=== PATIENT | female | born 1945 | race African-American/Black ===

== ENCOUNTER → 2016-12-26 | Outpatient (CLI) | payer MEDICARE, OTHER | LOC: WI 13:03 | PROVIDERS: ATTEND Internal Medicine | DX: Z12.31 Encounter for screening mammogram for malignant neoplasm of breast (principal) | CPT/HCPCS: 77063; G0202; 77067 ==

== ENCOUNTER → 2017-12-29 | Outpatient (CLI) | payer MEDICARE, OTHER ==
--- NOTE | 2017-12-29 09:30 | WOMENS IMAGING REPORT ---
EXAM DESCRIPTION: 3D SCREENING MAMMO BILAT COMPLETED DATE/TIME: 12/29/2017 8:53 am REASON FOR STUDY: ROUTINE SCREENING;Z12.31 Z12.31 ENCNTR SCREEN MAMMOGRAM FOR MALIGNANT NEOPLASM OF TONYA COMPARISON: [id number] TECHNIQUE: Standard craniocaudal and mediolateral oblique views of each breast recorded using digita l acquisition and breast tomosynthesis. LIMITATIONS: None. FINDINGS: No masses, calcifications or architectural distortion. No areas of suspicion. Read with the assistance of CAD. .[facility] - R2 Cenova Version 1.3 .[facility] - R2 Cenova Version 1.3 .[facility] Imaging - R2 Cenova Version 2.4 .[facility] [place] - R2 Cenova Version 2.4 .[facility] - R2 Manager Order Version 9.2 IMPRESSION: NORMAL MAMMOGRAM. BIRADS 1. BREAST DENSITY: b. There are scattered areas of fibroglandular density. BIRAD: 1 NEGATIVE RECOMMENDATION: ROUTINE SCREENING COMMENT: The patient has been notified of the results by letter per SA requirements. Additional no tification policies are in place for contacting patient with suspicious or incomplete findings. Quality ID #225: The [employer] recommends an annual screening mammogram for women aged 40 years or over. This facility utilizes a reminder system to ensure that all patients receive reminder letters, and/or direct phone calls for appointments. This includes reminders for routine scr eening mammograms, diagnostic mammograms, or other Breast Imaging Interventions when appropriate. Th is patient will be placed in the appropriate reminder system. The [employer] (ACR) has developed recommendations for screening MRI of the breast s in certain patient populations, to be used in conjunction with mammography. Breast MRI surveillanc e may be appropriate for women with more than 20% lifetime risk of developing breast cancer as deter mined by genetic testing, significant family history of the disease, or history of mantle radiation f or Hodgkins Disease. ACR Practice Guidelines 2008. DBT Technology DBT is a type of tomographic mammography. With conventional mammography, overlapping breast tissue ma y make lesions difficult to detect, even with good compression. DBT uses an x-ray tube that rotates a round the breast, taking images at different angles. These images are then combined to create thin sl ices of the breast that the radiologist can view as a 3D reconstruction. The D square nv unit can perform full-field digital mammograms (2D imaging); or DBT (3D imaging); or both, in a combination mode that quickly performs both the mammogram and the tomosynthesis scan while the breast is still compressed. PQRS 6045F: Fluoroscopic imaging is not utilized for breast tomosynthesis. TECHNICAL DOCUMENTATION: FINDING NUMBER: (1) ASSESSMENT: (1) JOB ID: [id number] [employer]- All Rights Reserved Reading location - IP/workstation name: [facility]-[email or web address]
== END ==
LOC: WI 08:52
PROVIDERS: ATTEND Internal Medicine
DX: Z12.31 Encounter for screening mammogram for malignant neoplasm of breast (principal)
CPT/HCPCS: 77063; 77067

== ENCOUNTER → 2017-12-30 | Outpatient (CLI) | payer MEDICARE, OTHER ==
[2017-12-30 13:29] LABS: UR PRO/CREAT RATIO RESULT 0.1 mg/mg (0.0-0.2); URINE CREATININE 139.3 mg/dL (15-278); URINE PROTEIN 19.2 mg/dL (<12)
[2017-12-31 15:38] LABS: ALBUMIN 3 3.1 g/dL (2.9-4.4); ALPHA-1-GLOBULIN 0.2 g/dL (0.0-0.4); BETA GLOBULIN 1.2 g/dL (0.7-1.3); GAMMA GLOBULINS 1.1 g/dL (0.4-1.8); IMMUNOGLOBULIN A 362 mg/dL (64-422); IMMUNOGLOBULIN G 1024 mg/dL (700-1600); IMMUNOGLOBULIN M 127 mg/dL (26-217); MONOCLONAL-SPIKE Not Observed g/dL (Not Observed); PROTEIN TOTAL SERUM 6.5 g/dL (6.0-8.5)
[2018-01-01 15:38] LABS: ALPHA-1-GLOBULIN URINE 0.9 % (.); ALPHA-2-GLOBULIN URINE 7.3 % (.); GAMMA GLOBULIN URINE 68.4 % (.); M-SPIKE % UR 58.5 % (Not Observed); PROTEIN TOTAL URINE 30.2 mg/dL (Not Estab.)
== END ==
LOC: OD 10:20
PROVIDERS: ATTEND Internal Medicine
DX: R80.9 Proteinuria, unspecified (principal); N18.3 Chronic kidney disease, stage 3 (moderate)
CPT/HCPCS: 36415; 82570; 84156; 84166; 86320

== ENCOUNTER → 2018-01-15 | Outpatient (CLI) | payer MEDICARE, OTHER ==
--- NOTE | 2018-01-15 17:03 | RADIOLOGY REPORT (SQ) ---
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 TECHNIQUE: Images of the axial and proximal appendicular skeleton are obtained, along with lateral s kull and frontal chest films. LIMITATIONS: None. FINDINGS: AP CHEST: No bony findings. Lungs are clear. Mild cardiomegaly LATERAL SKULL: No worrisome bone lesions. AP BOTH HUMERI: No worrisome bone lesions. TWO-VIEW LUMBAR SPINE: No worrisome bone lesions. TWO-VIEW THORACIC SPINE: No worrisome bone lesions. TWO VIEW CERVICAL SPINE: No worrisome bone lesions. High-grade disc space narrowing with anterior o steophyte formation at C5-6 and C6-7 AP PELVIS: No worrisome bone lesions. AP BOTH FEMURS: Old right femur healed diaphysis fracture. Left femur unremarkable OTHER: No other significant finding. IMPRESSION: NO WORRISOME BONE LESIONS. TECHNICAL DOCUMENTATION: JOB ID: [id number] [employer]- All Rights Reserved Reading location - IP/workstation name: [facility]-[email or web address]
== END ==
LOC: RAD 15:02
PROVIDERS: ATTEND Internal Medicine Medical Oncology
DX: D47.2 Monoclonal gammopathy (principal)
CPT/HCPCS: 77075

== ENCOUNTER 2018-01-20 09:07 | Day surgery (SDC) | payer MEDICARE, OTHER ==
[2018-01-20 10:03] LABS: HEMOGLOBIN 12.1 g/dL (12.0-15.5); MEAN CORPUSCULAR HEMOGLOBIN 23.6 pg (27.0-33.4); MEAN CORPUSCULAR VOLUME 76 fl (80-97); PLATELET COUNT 192 10^3/uL (150-450); RED BLOOD COUNT 5.12 10^6/uL (3.72-5.28); RED CELL DISTRIBUTION WIDTH 17.2 % (11.5-14.0); WHITE BLOOD COUNT 8.2 10^3/uL (4.0-10.5)
[2018-01-20 10:10] LABS: INTERNATIONAL RATION (INR) 0.99; PARTIAL THROMBOPLASTIN TIME 25.7 SEC (23.5-35.8); PROTHROMBIN TIME 13.5 SEC (11.4-15.4)
[2018-01-20] MEDS ORDERED: FENTANYL CITRATE INJ/PF 100 MCG/2 ML AMPUL ONE (10:57)
[2018-01-20] MEDS ORDERED: MIDAZOLAM 2 MG/2 ML INJ ONE (10:57)
[2018-01-20] MEDS ORDERED: LIDOCAINE 1% INJ-PF (10 MG/ML) 30 ML SDV ONE (10:57)
--- NOTE | 2018-01-20 12:59 | RADIOLOGY REPORT (SQ) ---
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 TECHNIQUE: CT guided biopsy of the right iliac crest bone marrow performed with conscious sedation. CT Fluoroscopy Time: 1.[address] scanners at this facility use dose modulation, iterative reconstruction, and/or weight based d osing when appropriate to reduce radiation dose to as low as reasonably achievable (ALARA). [facility]: Dose Right [facility]: CareDose [facility]: Dose Right [facility]: Teradose 4D [facility]: [employer] RADIATION DOSE: mGy. FINDINGS: The procedure was discussed with the patient and the patient agreed to the procedure. Prio r to the procedure, a time out was performed to verify the patient's identity and planned procedure. IV sedation was administered and physician direction by the registered nurse using 1 milligrams of Ve rsed and 50 micrograms of fentanyl. Physiologic monitoring was provided before, during, and after sed ation. The total sedation time was 30 minutes. Documentation face to face time, the performing proceduralist, spent monitoring the patient: [address] scanning was performed to localize the percutaneous site for the biopsy approach. After sterile skin prep and local lidocaine for skin and deep tissue anesthesia, a coaxial biopsy nee dle was used to obtain a bone marrow aspirate, and a bone marrow core of tissue. The biopsy tissue wa s received by Dr. Al's nurse to be sent out for evaluation. There were no immediate complication s. Pathology is pending at the time of dictation. IMPRESSION: CT GUIDED ASPIRATE AND CORE BIOPSY OF THE RIGHT POSTERIOR ILIAC CREST BONE MARROW PERFOR MED WITHOUT IMMEDIATE COMPLICATION. PATHOLOGY PENDING. IV CONSCIOUS SEDATION WITHOUT COMPLICATION. COMMENT: Quality ID 145: Final reports for procedures using fluoroscopy that document radiation exp osure indices, or exposure time and number of fluorographic images (if radiation exposure indices are not available) Patient medication list reviewed: Yes- Quality ID# [id number]:Eligible professional attests to documenting i n the medical record they obtained, updated, or reviewed the patient's current medications.. TECHNICAL DOCUMENTATION: JOB ID: [id number] Quality ID# 436: Final reports with documentation of one or more dose reduction techniques (e.g., Aut omated exposure control, adjustment of the mA and/or kV according to patient size, use of iterative r econstruction technique) 2010 [employer]- All Rights Reserved Reading location - IP/workstation name: [facility]-RR2
--- NOTE | 2018-01-20 12:59 | RADIOLOGY REPORT (SQ) ---
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 TECHNIQUE: CT guided biopsy of the right iliac crest bone marrow performed with conscious sedation. CT Fluoroscopy Time: 1.[address] scanners at this facility use dose modulation, iterative reconstruction, and/or weight based d osing when appropriate to reduce radiation dose to as low as reasonably achievable (ALARA). [facility]: Dose Right [facility]: CareDose [facility]: Dose Right [facility]: Teradose 4D [facility]: [employer] RADIATION DOSE: mGy. FINDINGS: The procedure was discussed with the patient and the patient agreed to the procedure. Prio r to the procedure, a time out was performed to verify the patient's identity and planned procedure. IV sedation was administered and physician direction by the registered nurse using 1 milligrams of Ve rsed and 50 micrograms of fentanyl. Physiologic monitoring was provided before, during, and after sed ation. The total sedation time was 30 minutes. Documentation face to face time, the performing proceduralist, spent monitoring the patient: [address] scanning was performed to localize the percutaneous site for the biopsy approach. After sterile skin prep and local lidocaine for skin and deep tissue anesthesia, a coaxial biopsy nee dle was used to obtain a bone marrow aspirate, and a bone marrow core of tissue. The biopsy tissue wa s received by Dr. Al's nurse to be sent out for evaluation. There were no immediate complication s. Pathology is pending at the time of dictation. IMPRESSION: CT GUIDED ASPIRATE AND CORE BIOPSY OF THE RIGHT POSTERIOR ILIAC CREST BONE MARROW PERFOR MED WITHOUT IMMEDIATE COMPLICATION. PATHOLOGY PENDING. IV CONSCIOUS SEDATION WITHOUT COMPLICATION. COMMENT: Quality ID 145: Final reports for procedures using fluoroscopy that document radiation exp osure indices, or exposure time and number of fluorographic images (if radiation exposure indices are not available) Patient medication list reviewed: Yes- Quality ID# 130:Eligible professional attests to documenting i n the medical record they obtained, updated, or reviewed the patient's current medications.. TECHNICAL DOCUMENTATION: JOB ID: [id number] Quality ID# 436: Final reports with documentation of one or more dose reduction techniques (e.g., Aut omated exposure control, adjustment of the mA and/or kV according to patient size, use of iterative r econstruction technique) 2010 [employer]- All Rights Reserved Reading location - IP/workstation name: [facility]-RR2
[2018-01-20 13:52] VITALS: BP 115/65
== END 2018-01-20 13:00 | disposition home or self-care (01) ==
LOC: RAD 09:07
PROVIDERS: ATTEND Internal Medicine Medical Oncology
PROC: 07DR3ZX Extraction of Iliac Bone Marrow, Percutaneous Approach, Diagnostic (ICD-10-PCS; principal; 2018-01-20)
DX: D47.2 Monoclonal gammopathy (principal); F17.210 Nicotine dependence, cigarettes, uncomplicated; Z79.51 Long term (current) use of inhaled steroids; Z79.82 Long term (current) use of aspirin
CPT/HCPCS: 36415; 82962; 85027; 85610; 85730; 38221; 77012; J2250; J3010; J3490

== ENCOUNTER → 2018-12-21 | Outpatient (CLI) | payer MEDICARE, OTHER ==
--- NOTE | 2018-12-21 12:58 | WOMENS IMAGING REPORT ---
EXAM DESCRIPTION: RETROPERITONEAL U/S COMPLETED DATE/TIME: 12/21/2018 11:40 am REASON FOR STUDY: RENAL;N18.4 N18.4 CHRONIC KIDNEY DISEASE, STAGE 4 (SEVERE) COMPARISON: None. TECHNIQUE: Dynamic and static grayscale images acquired of the kidneys and bladder and recorded on P ACS. Additional selected color Doppler and spectral images recorded. LIMITATIONS: None. FINDINGS: RIGHT KIDNEY: Normal size, 10.4 cm. Normal echogenicity. No solid masses. There are multiple cysts. The largest measures 25 mm. No hydronephrosis. No calcifications. LEFT KIDNEY: Atrophic. 3.7 cm. No solid or suspicious masses. No hydronephrosis. No calcificat ions. BLADDER: Bladder is not filled and therefore not evaluated. OTHER FINDINGS: No other significant finding. IMPRESSION: Normal right kidney. Atrophic left kidney. Bladder was not evaluated. TECHNICAL DOCUMENTATION: JOB ID: [id number] [employer]- All Rights Reserved Reading location - IP/workstation name: [email or web address]
== END ==
LOC: WI 11:16
PROVIDERS: ATTEND Internal Medicine Nephrology
DX: E11.22 Type 2 diabetes mellitus with diabetic chronic kidney disease (principal); I12.9 Hypertensive chronic kidney disease with stage 1 through stage 4 chronic kidney disease, or unspecified chronic kidney disease; N18.4 Chronic kidney disease, stage 4 (severe); M10.9 Gout, unspecified
CPT/HCPCS: 76770

== ENCOUNTER → 2018-12-31 | Outpatient (CLI) | payer MEDICARE, OTHER ==
[2018-12-31 09:32] LABS: ABSOLUTE EOSINOPHILS # (AUTO) 0.1 10^3/uL (0.0-0.6); ABSOLUTE LYMPHOCYTES (AUTO) 1.9 10^3/uL (0.5-4.7); ABSOLUTE MONOCYTES (AUTO) 0.6 10^3/uL (0.1-1.4); ABSOLUTE NEUT (AUTO) 4.3 10^3/uL (1.7-8.2); BASOPHILS % (AUTO) 0.6 % (0-2); EOSINOPHILS % (AUTO) 1.7 % (0-6); HEMATOCRIT 37.8 % (36.0-47.0); LYMPHOCYTES % (AUTO) 27.2 % (13-45); MEAN CORPUSCULAR HEMOGLOBIN 23.6 pg (27.0-33.4); MEAN CORPUSCULAR HGB CONC 31.8 g/dL (32.0-36.0); MEAN CORPUSCULAR VOLUME 74 fl (80-97); MONOCYTES % (AUTO) 8.6 % (3-13); PLATELET COUNT 216 10^3/uL (150-450); RED CELL DISTRIBUTION WIDTH 16.2 % (11.5-14.0); SEGMENTED NEUTROPHILS % (AUTO) 61.9 % (42-78); TOTAL CELLS COUNTED % (AUTO) 100 %
[2018-12-31 09:41] LABS: APPEARANCE,URINE SLIGHTLY-CLOUDY; BILIRUBIN,URINE NEGATIVE (NEGATIVE); COLOR,URINE YELLOW; GLUCOSE, URINE NEGATIVE (NEGATIVE); KETONES,URINE NEGATIVE (NEGATIVE); LEUKOCYTE ESTERASE,URINE NEGATIVE (NEGATIVE); NITRITE,URINE NEGATIVE (NEGATIVE); PROTEIN,URINE NEGATIVE (NEGATIVE); URINE SPECIFIC GRAVITY 1.015; UROBILINOGEN,URINE NEGATIVE mg/dL (<2.0)
[2018-12-31 10:05] LABS: ALANINE AMINOTRANSFERASE 18 U/L (9-52); ALBUMIN 3.7 g/dL (3.5-5.0); ALKALINE PHOSPHATASE 93 U/L (38-126); ANION GAP 8 (5-19); ASPARTATE AMINO TRANSFERASE 17 U/L (14-36); BILIRUBIN,DIRECT 0.3 mg/dL (0.0-0.4); BILIRUBIN,TOTAL 0.5 mg/dL (0.2-1.3); BLOOD UREA NITROGEN 44 mg/dL (7-20); CALCIUM 10.2 mg/dL (8.4-10.2); CARBON DIOXIDE 31 mmol/L (22-30); CHLORIDE 104 mmol/L (98-107); GLUCOSE 113 mg/dL (75-110); POTASSIUM 3.7 mmol/L (3.6-5.0); SODIUM 143.2 mmol/L (137-145); TOTAL PROTEIN 7.1 g/dL (6.3-8.2); URIC ACID 5.6 mg/dL (2.5-7.5)
== END ==
LOC: OD 08:18
PROVIDERS: ATTEND Internal Medicine Nephrology
DX: E11.22 Type 2 diabetes mellitus with diabetic chronic kidney disease (principal); I12.9 Hypertensive chronic kidney disease with stage 1 through stage 4 chronic kidney disease, or unspecified chronic kidney disease; N18.4 Chronic kidney disease, stage 4 (severe)
CPT/HCPCS: 36415; 80053; 81001; 84550; 85025

== ENCOUNTER → 2019-03-04 | Outpatient (CLI) | payer MEDICARE, OTHER ==
[2019-03-04 09:03] LABS: HEMATOCRIT 35.9 % (36.0-47.0); HEMOGLOBIN 11.4 g/dL (12.0-15.5); MEAN CORPUSCULAR HEMOGLOBIN 22.9 pg (27.0-33.4); MEAN CORPUSCULAR HGB CONC 31.8 g/dL (32.0-36.0); MEAN CORPUSCULAR VOLUME 72 fl (80-97); PLATELET COUNT 176 10^3/uL (150-450); RED BLOOD COUNT 4.99 10^6/uL (3.72-5.28); RED CELL DISTRIBUTION WIDTH 15.8 % (11.5-14.0); WHITE BLOOD COUNT 7.3 10^3/uL (4.0-10.5)
[2019-03-04 09:33] LABS: ANION GAP 10 (5-19); BLOOD UREA NITROGEN 52 mg/dL (7-20); CALCIUM 10.2 mg/dL (8.4-10.2); CARBON DIOXIDE 29 mmol/L (22-30); CHLORIDE 106 mmol/L (98-107); GLUCOSE 126 mg/dL (75-110); POTASSIUM 3.8 mmol/L (3.6-5.0); SODIUM 144.5 mmol/L (137-145)
== END ==
LOC: OD 08:16
PROVIDERS: ATTEND Internal Medicine Nephrology
DX: I12.9 Hypertensive chronic kidney disease with stage 1 through stage 4 chronic kidney disease, or unspecified chronic kidney disease (principal); N18.4 Chronic kidney disease, stage 4 (severe); E11.22 Type 2 diabetes mellitus with diabetic chronic kidney disease; M10.00 Idiopathic gout, unspecified site
CPT/HCPCS: 36415; 80048; 83735; 85027

== ENCOUNTER → 2019-04-30 | Outpatient (CLI) | payer MEDICARE, OTHER ==
--- NOTE | 2019-04-30 11:44 | WOMENS IMAGING REPORT ---
EXAM DESCRIPTION: 3D SCREENING MAMMO BILAT COMPLETED DATE/TIME: 04/30/2019 10:02 am REASON FOR STUDY: Z12.31 ROUTINE 3D BILATERAL SCREENING Z12.31 ENCNTR SCREEN MAMMOGRAM FOR MALIGNAN T NEOPLASM OF TONYA COMPARISON: 12/29/2017 and 12/26/2016. EXAM PARAMETERS: Views: Standard craniocaudal and mediolateral oblique views of each breast recorded using digital acquisition and breast tomosynthesis. Read with the assistance of CAD. .[facility] - MCE-5 Development Manager Applied Version 9.2 LIMITATIONS: None. FINDINGS: No suspicious masses, suspicious calcifications or architectural distortion. No areas of c oncern. IMPRESSION: NEGATIVE MAMMOGRAM. BIRADS 1. BREAST DENSITY: b. There are scattered areas of fibroglandular density. BIRAD: ASSESSMENT: 1 NEGATIVE RECOMMENDATION: ROUTINE SCREENING COMMENT: The patient has been notified of the results by letter per MQSA requirements. Additional no tification policies are in place for contacting patient with suspicious or incomplete findings. Quality ID #225: The [employer] recommends an annual screening mammogram for women aged 40 years or over. This facility utilizes a reminder system to ensure that all patients receive reminder letters, and/or direct phone calls for appointments. This includes reminders for routine scr eening mammograms, diagnostic mammograms, or other Breast Imaging Interventions when appropriate. Th is patient will be placed in the appropriate reminder system. TECHNICAL DOCUMENTATION: FINDING NUMBER: (1) ASSESSMENT: (1) JOB ID: [id number] [employer]- All Rights Reserved Reading location - IP/workstation name: [email or web address]
== END ==
LOC: WI 09:44
PROVIDERS: ATTEND Internal Medicine
DX: Z12.31 Encounter for screening mammogram for malignant neoplasm of breast (principal)
CPT/HCPCS: 77063; 77067

== ENCOUNTER → 2019-06-25 | Outpatient (CLI) | payer MEDICARE, OTHER ==
--- NOTE | 2019-06-25 17:37 | RADIOLOGY REPORT (SQ) ---
EXAM DESCRIPTION: BONE SURVEY COMPLETE COMPLETED DATE/TIME: 06/25/2019 4:14 pm REASON FOR STUDY: D63.1 ANEMIA IN CHRONIC KIDNEY DISEASE D63.1 ANEMIA IN CHRONIC KIDNEY DISEASE COMPARISON: 01/15/2018 TECHNIQUE: Images of the axial and proximal appendicular skeleton are obtained, along with lateral s kull and frontal chest films. LIMITATIONS: None. FINDINGS: AP CHEST: No bony findings. Lungs are clear. SKULL: No worrisome bone lesions. AP BOTH HUMERI: No worrisome bone lesions. TWO-VIEW LUMBAR SPINE: No worrisome bone lesions. There is anterolisthesis of L4 on L5 and mild ante rolisthesis of L3 on L4. TWO-VIEW THORACIC SPINE: No worrisome bone lesions. AP PELVIS: No worrisome bone lesions. AP BOTH FEMURS: No osseous lesions. There is deformity of the proximal femur from a prior injury. OTHER: No worrisome bone lesions in the right and left tib-fib. IMPRESSION: No worrisome bone lesions. Changes in the lumbar spine as described. TECHNICAL DOCUMENTATION: JOB ID: [id number] [employer]- All Rights Reserved Reading location - IP/workstation name: [email or web address]
== END ==
LOC: RAD 15:20
PROVIDERS: ATTEND Internal Medicine
DX: M53.86 Other specified dorsopathies, lumbar region (principal); N18.9 Chronic kidney disease, unspecified; D63.1 Anemia in chronic kidney disease
CPT/HCPCS: 77075

== ENCOUNTER 2019-06-29 09:35 | Day surgery (SDC) | payer MEDICARE, OTHER ==
[2019-06-29 10:14] LABS: HEMATOCRIT 32.3 % (36.0-47.0); HEMOGLOBIN 10.2 g/dL (12.0-15.5); MEAN CORPUSCULAR HEMOGLOBIN 22.8 pg (27.0-33.4); MEAN CORPUSCULAR HGB CONC 31.4 g/dL (32.0-36.0); MEAN CORPUSCULAR VOLUME 73 fl (80-97); PLATELET COUNT 178 10^3/uL (150-450); RED BLOOD COUNT 4.45 10^6/uL (3.72-5.28); RED CELL DISTRIBUTION WIDTH 15.8 % (11.5-14.0); WHITE BLOOD COUNT 6.8 10^3/uL (4.0-10.5)
[2019-06-29 10:33] LABS: BLOOD UREA NITROGEN 36 mg/dL (7-20)
[2019-06-29 10:46] LABS: INTERNATIONAL RATION (INR) 1.08
[2019-06-29 10:47] LABS: PARTIAL THROMBOPLASTIN TIME 24.5 SEC (23.5-35.8)
[2019-06-29] MEDS ORDERED: MIDAZOLAM 2 MG/2 ML INJ ONE (12:09)
[2019-06-29] MEDS ORDERED: FENTANYL CITRATE INJ/PF 100 MCG/2 ML AMPUL ONE (12:09)
--- NOTE | 2019-06-29 13:35 | RADIOLOGY REPORT (SQ) ---
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 TECHNIQUE: CT guided biopsy of the left iliac crest bone marrow performed with conscious sedation. CT Fluoroscopy Time: 0.[address] scanners at this facility use dose modulation, iterative reconstruction, and/or weight based d osing when appropriate to reduce radiation dose to as low as reasonably achievable (ALARA). [facility]: Dose Right [facility]: CareDose [facility]: Dose Right [facility]: Teradose 4D [facility]: Smart [employer] RADIATION DOSE: CT Rad equipment meets quality standard of care and radiation dose reduction techniq ues were employed. CTDIvol: 4.0 - 26.8 mGy. DLP: 924 mGy-cm.mGy. FINDINGS: The procedure, risks, benefits, and alternatives were discussed with the patient in the pr eprocedural area, and all questions were answered. Informed consent was obtained verbally and in writ ing. The patient was then brought to the CT suite, positioned prone on the CT gurney, and a time-out was p erformed. After that, axial images of the pelvis were obtained for targeting of the iliac tuberosity. Based on review of the axial images an appropriate access site was selected on the left buttock. The area around selected access site was then prepped and draped 2% chlorhexidine utilizing standard sterile technique. After that, the access site was infiltrated 1% lidocaine and an incision was made in the skin with a #11 blade. An 11 gauge Osteo-Site Lugo coaxial needle was then advanced into the iliac tuberosity. After that, the inner stylet of the coaxial needle was replaced for a 13 gauge bio psy needle and 1 core sample was obtained. 15 mL of marrow aspirate were then collected through the cannula of the coaxial needle. Once the aspirate was collected, the cannula of the Osteo-Site Lugo coaxial needle was removed and axial images of the biopsied area were obtained to exclude an acute co mplication. The patient tolerated the procedure well without immediate complication. At the end of the procedure the patient's condition was unchanged from the preprocedural baseline. IV conscious sedation was administered at the direction of the performing physician by a registered n urse. 1 milligrams of Versed and 50 micrograms of fentanyl. Physiologic monitoring was provided befor e, during, and after sedation. The total sedation time was 30 minutes. Documentation of [id number]-or-vfic time performing proceduralist spent monitoring the patient: 15 minutes. IMPRESSION: CT GUIDED ASPIRATE AND CORE BIOPSY OF THE LEFT POSTERIOR ILIAC CREST BONE MARROW PERFORM ED WITHOUT IMMEDIATE COMPLICATION. PATHOLOGY PENDING. IV CONSCIOUS SEDATION WITHOUT COMPLICATION. COMMENT: Quality ID 145: Final reports for procedures using fluoroscopy that document radiation exp osure indices, or exposure time and number of fluorographic images (if radiation exposure indices are not available) Patient medication list reviewed: Yes- Quality ID# 130:Eligible professional attests to documenting i n the medical record they obtained, updated, or reviewed the patient's current medications.. TECHNICAL DOCUMENTATION: JOB ID: [id number] Quality ID# 436: Final reports with documentation of one or more dose reduction techniques (e.g., Aut omated exposure control, adjustment of the mA and/or kV according to patient size, use of iterative r econstruction technique) 2010 [employer]- All Rights Reserved Reading location - IP/workstation name: [email or web address]
[2019-06-29 15:46] VITALS: BP 124/61
== END 2019-06-29 14:45 | disposition home or self-care (01) ==
LOC: RAD 09:35
PROVIDERS: ATTEND Internal Medicine
DX: D63.1 Anemia in chronic kidney disease (principal); E11.22 Type 2 diabetes mellitus with diabetic chronic kidney disease; I12.9 Hypertensive chronic kidney disease with stage 1 through stage 4 chronic kidney disease, or unspecified chronic kidney disease; N18.9 Chronic kidney disease, unspecified; J44.9 Chronic obstructive pulmonary disease, unspecified; Z87.891 Personal history of nicotine dependence; Z79.51 Long term (current) use of inhaled steroids; Z79.899 Other long term (current) drug therapy; Z79.82 Long term (current) use of aspirin; Z79.01 Long term (current) use of anticoagulants
CPT/HCPCS: 36415; 82962; 84520; 82565; 85027; 85610; 85730; 38221; J2250; J3010

== ENCOUNTER → 2019-09-01 | Outpatient (CLI) | payer MEDICARE, OTHER ==
[2019-09-01 10:09] LABS: ABSOLUTE BASOPHILS # (AUTO) 0.1 10^3/uL (0.0-0.2); ABSOLUTE EOSINOPHILS # (AUTO) 0.1 10^3/uL (0.0-0.6); ABSOLUTE MONOCYTES (AUTO) 0.5 10^3/uL (0.1-1.4); EOSINOPHILS % (AUTO) 1.1 % (0-6); HEMATOCRIT 32.7 % (36.0-47.0); HEMOGLOBIN 10.5 g/dL (12.0-15.5); LYMPHOCYTES % (AUTO) 25.9 % (13-45); MEAN CORPUSCULAR HEMOGLOBIN 23.2 pg (27.0-33.4); MEAN CORPUSCULAR HGB CONC 32.1 g/dL (32.0-36.0); MEAN CORPUSCULAR VOLUME 72 fl (80-97); MONOCYTES % (AUTO) 6.6 % (3-13); PLATELET COUNT 190 10^3/uL (150-450); RED BLOOD COUNT 4.53 10^6/uL (3.72-5.28); RED CELL DISTRIBUTION WIDTH 17.7 % (11.5-14.0); SEGMENTED NEUTROPHILS % (AUTO) 65.4 % (42-78); TOTAL CELLS COUNTED % (AUTO) 100 %; WHITE BLOOD COUNT 7.6 10^3/uL (4.0-10.5)
[2019-09-01 10:13] LABS: APPEARANCE,URINE SLIGHTLY-CLOUDY; BILIRUBIN,URINE NEGATIVE (NEGATIVE); COLOR,URINE YELLOW; GLUCOSE, URINE NEGATIVE (NEGATIVE); KETONES,URINE NEGATIVE (NEGATIVE); LEUKOCYTE ESTERASE,URINE NEGATIVE (NEGATIVE); NITRITE,URINE NEGATIVE (NEGATIVE); PROTEIN,URINE NEGATIVE (NEGATIVE); URINE SPECIFIC GRAVITY 1.014; UROBILINOGEN,URINE NEGATIVE mg/dL (<2.0)
[2019-09-01 10:40] LABS: ALBUMIN 4.3 g/dL (3.5-5.0); ANION GAP 12 (5-19); BLOOD UREA NITROGEN 38 mg/dL (7-20); CALCIUM 10.6 mg/dL (8.4-10.2); CARBON DIOXIDE 28 mmol/L (22-30); CHLORIDE 103 mmol/L (98-107); GLUCOSE 111 mg/dL (75-110); PHOSPHORUS 4.6 mg/dL (2.5-4.5); POTASSIUM 3.7 mmol/L (3.6-5.0)
== END ==
LOC: OD 09:20
PROVIDERS: ATTEND Internal Medicine Nephrology
DX: N18.4 Chronic kidney disease, stage 4 (severe) (principal); I12.9 Hypertensive chronic kidney disease with stage 1 through stage 4 chronic kidney disease, or unspecified chronic kidney disease; E11.9 Type 2 diabetes mellitus without complications; M10.00 Idiopathic gout, unspecified site
CPT/HCPCS: 36415; 80069; 81001; 83970; 85025

== ENCOUNTER → 2020-07-18 | Outpatient (CLI) | payer MEDICARE, OTHER ==
--- NOTE | 2020-07-18 15:14 | WOMENS IMAGING REPORT ---
EXAM DESCRIPTION: 3D SCREENING MAMMO BILAT IMAGES COMPLETED DATE/TIME: 07/18/2020 2:50 pm REASON FOR STUDY: Z12.31 ENCOUNTER FOR SCREENING MAMMOGRAM FOR MALIGNANT NEOPLASM OF BREAST Z12.31 ENCNTR SCREEN MAMMOGRAM FOR MALIGNANT NEOPLASM OF TONYA COMPARISON: Priors dating back to 2011. EXAM PARAMETERS: Views: Standard craniocaudal and mediolateral oblique views of each breast recorded using digital acquisition and breast tomosynthesis. Read with the assistance of CAD. .[facility] - R2 [employer] Aide Version 9.2 LIMITATIONS: None. FINDINGS: No suspicious masses, suspicious calcifications or architectural distortion. No areas of c oncern. IMPRESSION: NEGATIVE MAMMOGRAM. BIRADS 1. BREAST DENSITY: b. There are scattered areas of fibroglandular density. BIRAD: ASSESSMENT: 1 NEGATIVE RECOMMENDATION: ROUTINE SCREENING COMMENT: The patient has been notified of the results by letter per MQSA requirements. Additional no tification policies are in place for contacting patient with suspicious or incomplete findings. Quality ID #225: The [employer] recommends an annual screening mammogram for women aged 40 years or over. This facility utilizes a reminder system to ensure that all patients receive reminder letters, and/or direct phone calls for appointments. This includes reminders for routine scr eening mammograms, diagnostic mammograms, or other Breast Imaging Interventions when appropriate. Th is patient will be placed in the appropriate reminder system. TECHNICAL DOCUMENTATION: FINDING NUMBER: (1) ASSESSMENT: (1) JOB ID: [id number] 2010 [employer]- All Rights Reserved Reading location - IP/workstation name: [email or web address]
== END ==
LOC: WI 14:27
PROVIDERS: ATTEND Internal Medicine
DX: Z12.31 Encounter for screening mammogram for malignant neoplasm of breast (principal)
CPT/HCPCS: 77063; 77067